=== PATIENT | male | born 1965 | race Caucasian/White ===

== ENCOUNTER 2019-09-30 17:21 | Observation (INO) ==
--- NOTE | 2019-09-30 17:39 | ED EKG INTERP ---
This chart was entered by Ayaka Ny Scribe, acting as scribe for Alden Marin MD. EKG Interpretation - EKG Time of EKG reading by physician:: 17:35 EKG Read and Signed by:: Alden Marin EKG Interpretation (*Must complete 3 of following elements*): Normal Rate: 68 Rhythm: NSR [place]: normal QRS: normal AL Interval: normal ST Wave: normal Prior EKG Comparison: no prior EKG Attestation - Physician/ BRUCE Attestation Patient care was provided by Advanced Practice Provider:: No The physician spent face to face time with patient:: Yes Advanced Practice Provider documentation review:: Supervising physician onsite and consulted in the evaluation and care of this patient. The physician did have a face to face encounter with the patient. This chart was documented by the indicated scribe, (Ayaka Ny Scribe) and accurately reflects the services I performed and decisions made by Tania cervantes Kent A., MD, as attested by the provider's signature.
[2019-09-30 18:12] LABS: BASO# 0.05 X1000 (0.0-0.2); BASO% 0.6 % (0.0-0.8); EOS% 1.2 % (0.0-10.0); HEMATOCRIT 44.6 % (42.0-52.0); HEMOGLOBIN 15.1 g/dL (14.0-18.0); LYMPH# 2.47 X1000 (1.2-3.4); LYMPH% 30.3 % (20.5-51.1); MCH 31.5 PG (27-31); MCHC 33.9 g/dL (33-37); MCV 93.1 FL (81-99); MONO# 0.77 X1000 (0.11-0.59); MONO% 9.5 % (1.7-9.3); MPV 9.9 FL (7.4-10.4); NEUT# 4.75 X1000 (1.4-6.5); NEUT% 58.4 % (42.2-75.2); PLT 263 X1000 (130-400); RBC 4.79 XMIL (4.7-6.1); RDW 13.2 % (11.5-14.5); WBC 8.14 X1000 (4.8-10.8)
--- NOTE | 2019-09-30 18:29 | EKG Report ---
Test Performed on : 09/30/2019 5:29:36 PM Test Reason : cp Blood Pressure : / mmHG Vent. Rate : 068 BPM Atrial Rate : 068 BPM P-R Int : 158 ms QRS Dur : 080 ms QT Int : 394 ms P-R-T Axes : 037 033 053 degrees QTc Int : 418 ms Normal sinus rhythm. Normal ECG When compared with ECG of 04-SEP-2017 21:45, No significant change was found Unconfirmed Result
[2019-09-30 18:42] LABS: AGAP 14; ALB/GLOB RATIO 1.8; ALBUMIN 4.1 g/dL (3.5-5.0); ALKALINE PHOSPHATASE 87 U/L (32-122); BUN 11 mg/dL (8-22); CHLORIDE 102 mmol/L (98-107); CK PROFILE 139 U/L (24-204); COSMO 284; CREATININE 1.1 mg/dL (0.7-1.2); ESTIMATED GFR > 60; GLUCOSE 163 mg/dL (70-104); GOT 16 U/L (10-34); GPT 18 U/L (10-44); POTASSIUM 4.3 mmol/L (3.5-5.1); SODIUM 141 mmol/L (136-145); TCO2 25 mmol/L (25-35); TOTAL BILIRUBIN 0.59 mg/dL (0.20-1.00); TOTAL PROTEIN 6.4 g/dL (6.3-8.3)
--- NOTE | 2019-09-30 18:58 | Diag Imaging Result Doc PS360 ---
EXAM: CHEST-2 VIEWS INDICATION: cp TECHNIQUE: 2 views COMPARISON: 09/04/2017 FINDINGS: The lungs are grossly clear. There is no discrete pleural fluid collection or pneumothorax. The cardiomediastinal silhouette and central vasculature are grossly unremarkable. IMPRESSION: No evidence of acute pathology by plain radiograph. Electronically signed by Arian Kelley 09/30/2019 6:55 PM
[2019-09-30 19:20] LABS: INR 0.86; PROTIME 11.8 Seconds (11.0-16.0)
[2019-09-30] MEDS ORDERED: NITROGLYCERIN TOP ONE (19:52)
--- NOTE | 2019-09-30 19:55 | PROVIDER DOCUMENTATION ---
HPI-General Adult - General Chief Complaint: Chest Pain Stated Complaint: CP/SOB HEART PT Time Seen by Provider: 09/30/19 17:39 Source: patient, family Allergies/Adverse Reactions: Patient Allergies Allergy/AdvReac Type Severity Reaction Status Date / Time No Known Allergies Allergy Verified 09/30/19 23:44 Home Medications: Home Medication List Medication Instructions Recorded Confirmed Last Taken Type ATORVAstatin [Lipitor] 40 mg PO QHS 09/04/17 10/01/19 09/04/17 20:30 History Aspirin 81 mg PO QAM 09/04/17 09/30/19 09/04/17 07:00 History Canagliflozin/Metformin HCl 2 tab PO QAM 09/04/17 09/30/19 09/04/17 07:00 History [Invokamet 150-1,000 mg Tablet] Cetirizine HCl [Zyrtec] 10 mg PO QAM 09/04/17 09/30/19 09/04/17 07:00 History Clopidogrel Bisulfate [Plavix] 75 mg PO QAM 09/04/17 10/01/19 09/04/17 07:00 History Losartan Potassium 50 mg PO QAM 09/04/17 09/30/19 09/04/17 07:00 History Metoprolol Succinate E.r. [Toprol 50 mg PO QAM 09/04/17 09/30/19 09/04/17 07:00 History Xl] Ranolazine E.r. [Ranexa] 500 mg PO BID 09/04/17 09/30/19 09/04/17 20:30 History Pantoprazole Sodium 40 mg PO DAILY 09/30/19 09/30/19 Unknown History - History of Present Illness -Gen Adult Nature of Presenting Problems: 53yo male presents with CC of severe central chest pressure/heaviness that start ed yesterday and has been intermitently present over the last 24 hours. Pt reports that it feels like his previous AL when he had a stent place in 2012. The patient reports associated symptoms of shortness of breath, nausea, and muscles aches. The patient denies fevers, bleeding, or numbness. Review of Systems - Adult - REVIEW OF SYSTEMS - ADULT Constitutional: reports: no symptoms reported. denies: fever Eyes: reports: no symptoms reported. denies: eye pain Ears, Nose, Mouth & Throat: reports: no symptoms reported. denies: throat pain Cardiovascular: reports: chest pain Respiratory: reports: shortness of breath Gastrointestinal: reports: nausea. denies: abdominal pain, vomiting Genitourinary: reports: no symptoms reported. denies: flank pain Musculoskeletal: reports: no symptoms reported Integumentary: reports: no symptoms reported Neurological: reports: no symptoms reported. denies: headache/migraines, numbness Psychiatric: reports: no symptoms reported. denies: alcohol/drug dependence Endocrine: reports: no symptoms reported Hematologic/Lymphatic: reports: no symptoms reported, other (no bleeding) Allergic/Immunologic: reports: no symptoms reported Past History - Adult - PAST MEDICAL HISTORY-ADULT Review of Records: reports: Old Records Reviewed Major Childhood Illnesses: reports: denies history Cardiovascular: reports: cardiac disease, CAD Respiratory: reports: denies history Gastrointestinal: reports: denies history Obstetrical/Gynecological: reports: denies history Genitourinary: reports: denies history Musculoskeletal: reports: denies history Neurological: reports: denies history Endocrine/Immune: reports: denies history Other Conditions: reports: denies history - PRIOR SURGERIES/PROCEDURES Surgical/Procedure History: reports: reviewed, not pertinent - IMMUNIZATION STATUS Childhood Immunizations: See Nurse Assessment Flu Vaccine: See Nurse Assessment - FAMILY HISTORY Family History: reviewed, not pertinent - SOCIAL HISTORY Smoking: denies Substance Use: none/never Alcohol Use Frequency: occasionally Physical Exam-General - PHYSICAL EXAM-ADULT Initial Vital Signs Reviewed: Yes - CONSTITUTIONAL General Appearance: alert, mild distress, obese - EYES Eyes: negative: conjuctival exudate, photophobia, sclera injected, scleral icterus - HEAD, EARS, NOSE, MOUTH & THROAT HENMT: normocephalic/atraumatic, moist mucous membranes, pharynx normal. negative: hearing deficit - NECK Neck: non-tender, supple. negative: lymphadenopathy - RESPIRATORY Respiratory: normal breath sounds, no respiratory distress - CARDIOVASCULAR Cardiovascular: regular rate, rhythm. negative: no edema (1+ bilateral LE edema) - GASTROINTESTINAL (ABDOMEN) Abdominal Exam: non tender, soft - MUSCULOSKELETAL Extremity: non-tender, swelling (1+ bilateral LE edema). negative: deformity - SKIN Integumentary: normal color, warm/dry. negative: cyanosis, diaphoresis, jaundice, pallor - NEUROLOGIC Neurologic: grossly normal - PSYCHIATRIC Psych/Mental Status: normal mood/affect, normal thought content, normal thought process Progress - PLAN OF CARE/RESULTS Progress/Plan/Lab Results: Vital Signs - 8 hr 09/30/19 17:24 Temperature 97.7 F Pulse Rate 71 Respiratory Rate 20 Blood Pressure 156/86 O2 Sat by Pulse Oximetry 99 Laboratory Results - last 24 hr 09/30/19 09/30/19 09/30/19 17:52 17:52 17:52 WBC RBC Hgb Hct MCV MCH MCHC RDW Std Deviation Plt Count MPV Immature Gran % (Auto) Neut % (Auto) Lymph % (Auto) Saunders % (Auto) Eos % (Auto) Baso % (Auto) Immature Gran # (Auto) Neut # (Auto) Lymph # (Auto) Saunders # (Auto) Eos # (Auto) Baso # (Auto) PT INR PTT (Actin FS) Sodium 141 Potassium 4.3 Chloride 102 Carbon Dioxide 25 Anion Gap 14 BUN 11 Creatinine 1.1 Estimated GFR/1.73 m2 > 60 BUN/Creatinine Ratio 10 Glucose 163 H Calculated Osmolality 284 Calcium 9.0 Total Bilirubin 0.59 AST 16 ALT 18 Alkaline Phosphatase 87 Creatine Kinase 139 Troponin T High Sens 10 Xtu-A-Vvcjcjlvnxh Pept 19 Total Protein 6.4 Albumin 4.1 Globulin 2.3 Albumin/Globulin Ratio 1.8 09/30/19 09/30/19 09/30/19 17:52 17:52 17:52 WBC 8.14 RBC 4.79 Hgb 15.1 Hct 44.6 MCV 93.1 MCH 31.5 H MCHC 33.9 RDW Std Deviation 13.2 Plt Count 263 MPV 9.9 Immature Gran % (Auto) 0.0 Neut % (Auto) 58.4 Lymph % (Auto) 30.3 Saunders % (Auto) 9.5 H Eos % (Auto) 1.2 Baso % (Auto) 0.6 Immature Gran # (Auto) 0.00 Neut # (Auto) 4.75 Lymph # (Auto) 2.47 Saunders # (Auto) 0.77 H Eos # (Auto) 0.10 Baso # (Auto) 0.05 PT 11.8 INR 0.86 PTT (Actin FS) 29.6 Sodium Potassium Chloride Carbon Dioxide Anion Gap BUN Creatinine Estimated GFR/1.73 m2 BUN/Creatinine Ratio Glucose Calculated Osmolality Calcium Total Bilirubin AST ALT Alkaline Phosphatase Creatine Kinase Troponin T High Sens Bke-O-Qkurgcnzxdz Pept Total Protein Albumin Globulin Albumin/Globulin Ratio Orders Category Date Time Status Cardiac Monitoring DIRECTED Care 09/30/19 17:27 Active Oxygen Therapy- ED Nursing DIRECTED Care 09/30/19 17:27 Active Saline Loc NOW Care 09/30/19 17:27 Active CHEST-2 VIEWS [RAD] Stat Exams 09/30/19 17:27 Completed CBC WITH ELECTRONIC DIFF [HEME] Stat Lab 09/30/19 17:52 Completed CK PROFILE [SP CHEM] Stat Lab 09/30/19 17:52 Completed COMPREHENSIVE METABOLIC PANEL [CHEM] Stat Lab 09/30/19 17:52 Completed PRO B-NATRIURETIC PEPTIDE Stat Lab 09/30/19 17:52 Completed PROTIME WITH INR [COAG] Stat Lab 09/30/19 17:52 Completed PTT [COAG] Stat Lab 09/30/19 17:52 Completed TROPONIN T HIGH SENSITIVITY Stat Lab 09/30/19 17:52 Completed TROPONIN T HIGH SENSITIVITY Stat Lab 09/30/19 19:52 Uncollected CP/SOB/Palp >45 yrs of Age Stat Oth 09/30/19 17:27 Ordered EKG [EKG] Stat Ther 09/30/19 17:27 Draft Result Diagrams: 09/30/19 17:52 09/30/19 17:52 - REASSESSMENT Reassessment #1 Status: other (Given patient description of his chest pain as well as higher risk with hx of CAD with stent and DM and HTN. Will admit for further evaluation. Discussd with the hospitalist team who has accepted the patient.) Departure - Departure Date of Disposition Decision: 10/01/19 Time of Disposition Decision: 00:26 DIAGNOSIS: Chest pain Qualifiers: Chest pain type: unspecified Qualified Code(s): R07.9 - Chest pain, unspecified Disposition: ADMITTED INPATIENT 09 Certified Medical Emergency: Emergent Condition: Fair - Critical Care Note This patient required my direct & personal management of CC.: No Attestation - Physician/ BRUCE Attestation Patient care was provided by Advanced Practice Provider:: No The physician spent face to face time with patient:: Yes Advanced Practice Provider documentation review:: Supervising physician onsite and consulted in the evaluation and care of this patient. The physician did have a face to face encounter with the patient. - HEART Score HEART Score: History: Highly Suspicious HEART Score: ECG: Normal HEART Score: Age: 45-65 Years HEART Score: Risk Factors for Atherosclerotic Disease: > or = 3 Risk Factors or History of Atherosclerotic Disease HEART Score: Troponin: < or = Normal Limit Total HEART Score:: 5
[2019-10-01] MEDS ORDERED: ZOFRAN IV PRN (00:26)
[2019-10-01] MEDS ORDERED: TYLENOL PO PRN (00:26)
--- NOTE | 2019-10-01 00:46 | HISTORY AND PHYSICAL ---
PRIMARY CARE PROVIDER: Dr. Champagne. CHIEF COMPLAINT: Chest pain x2 days. HISTORY OF PRESENTING ISSUE: A 53-year-old male with a history of coronary disease, diabetes mellitus type 2, hypertension, hyperlipidemia, who presented to emergency department with 2 days history of having chest pain. He described it as pressure-like and he was short of breath. He was seen in the ED and, due to his presenting symptoms, it was thought that he will require admission for further management. At the time of my examination, patient denied any headache, fever, chills, hemoptysis, melena, weight changes, but complained of chest pain and shortness of breath. PAST MEDICAL HISTORY: Includes coronary artery disease, diabetes mellitus type 2, hypertension, hyperlipidemia. PAST SURGICAL HISTORY: Coronary stent, hernia repair, left ankle surgery. ALLERGIES: No known drug allergies. CURRENT MEDICATIONS: Include aspirin 81 mg p.o. q.a.m., atorvastatin 40 mg p.o. daily, Invokamet 150-1000 mg daily, Plavix 75 mg p.o. daily, losartan 50 mg p.o. q.a.m., metoprolol 50 mg p.o. q.a.m., pantoprazole 40 mg p.o. daily, Ranexa 500 mg p.o. b.i.d. SOCIAL HISTORY: He denies any history of smoking. Admits to social alcohol use. Denies any illicit drug use. FAMILY HISTORY: No history of coronary artery disease. REVIEW OF SYSTEMS: Fourteen-point review of systems is listed as in HPI. Other systems negative. PHYSICAL EXAMINATION: GENERAL: Cooperative, friendly male, he is resting comfortably now. VITAL SIGNS: Temperature 97.7 degrees, pulse 71, respirations 20, blood pressure 156/86. HEENT: Atraumatic, normocephalic. Extraocular movements intact. PERRLA. NECK: Supple. CHEST: Clear to auscultation. CARDIOVASCULAR: Regular rate and rhythm. S1, S2. ABDOMEN: Soft. Positive bowel sounds. EXTREMITIES: No edema. NEUROLOGIC: He is awake, alert, oriented x3. GENITOURINARY: No bladder distention. SKIN: Warm. LABORATORIES AND STUDIES: WBCs 8.14, hemoglobin 15.1, hematocrit 44.6, platelets 263,000. Sodium 141, potassium 4.3, chloride 102, CO2 is 25, BUN is 11, creatinine is 1.1. Glucose 163. Troponin is 10. Chest x-ray, no evidence of any acute pathology. ASSESSMENT: A 53-year-old male with a history of coronary artery disease, diabetes mellitus type 2, hypertension, hyperlipidemia, who presented to emergency department with 2 days history of having chest pain. We will place the patient for observation for further evaluation and management. ASSESSMENT: 1. Chest pain. 2. Coronary artery disease. 3. Diabetes mellitus type 2. 4. Hypertension. PLAN: 1. We will admit patient to medical floor with telemetry. We will continue with cardiac workup. Check EKG, serial cardiac enzymes. Have patient continue on aspirin. We will use a nitroglycerin p.r.n. chest pain. 2. Consult Cardiology. 3. Monitor blood glucose. Put patient on sliding scale insulin regimen. 4. We will monitor blood pressure. Resume antihypertensive agent. 5. Put patient on DVT prophylaxis with Lovenox. 6. We will continue to follow and reassess, make further recommendation based on patient's clinical course. cc: Joseph Horton MD
[2019-10-01] MEDS: LOVENOX SUBQ SCH (01:14)
[2019-10-01] MEDS: HUMULIN R SUBQ SCH ×4 (07:00→20:26)
[2019-10-01] MEDS: TOPROL XL PO SCH (08:30)
[2019-10-01] MEDS: RANEXA PO SCH ×2 (08:30→20:25)
[2019-10-01] MEDS: COZAAR PO SCH (08:31)
[2019-10-01] MEDS: PRILOSEC PO SCH (08:31)
[2019-10-01] MEDS ORDERED: ASPIRIN PO SCH (09:00)
[2019-10-01] MEDS ORDERED: PROTONIX PO SCH (09:00)
--- NOTE | 2019-10-01 09:31 | CARDIOLOGY CONSULTATION ---
DATE: 10/01/2019 CHIEF COMPLAINT: Episodes of chest pain over the last 3 days. HISTORY OF PRESENT ILLNESS: Mr. Neff is a 53-year-old male with a history of coronary disease, diabetes, hypertension, hyperlipidemia. He presented with complaints of chest pain that felt like a heaviness in sensation, all occurring at rest. They generally would occur in the car, and happened 3 to 4 times over the last 3 days. He had one bout of nausea associated with some of these episodes. Again, no exertional component. He has a history of an RCA stent, and reports that this is somewhat similar to what he had in the past. PAST MEDICAL HISTORY: Significant for: 1. Hypertension. 2. Hyperlipidemia. 3. Diabetes. 4. Coronary disease, with reported per him, coronary stenting in his RCA. I do not have records of this. SOCIAL HISTORY: He does not smoke. Rare alcohol use. He works as a [employer] dispatcher. FAMILY HISTORY: No early history of coronary disease. REVIEW OF SYSTEMS: A 10-system review of systems is negative, except for those mentioned in the HPI. PHYSICAL EXAMINATION: Vital Signs: He is afebrile, heart rate is 72, his most recent blood pressure is 133/74. General: He is in no acute distress. HEENT: Oropharynx is moist. Normal dentition. Eye examination shows pink conjunctivae, white sclerae. Neck: No obvious thyromegaly or thyroid tenderness. Cardiovascular: He sounds to be in a regular rate and rhythm. I do not hear any obvious murmurs. He has no S3. He has no lower extremity edema. No carotid bruits. His JVP is less than 8. Chest: Clear bilaterally. No increased work of breathing. Abdomen: Soft, nontender, nondistended. He has no obvious organomegaly. Skin: Warm and dry throughout. He has no obvious rashes. Neurological: He is moving all extremities well. He has no lateralizing deficits. PERTINENT DATA: His EKG shows sinus rhythm, rate of 68 beats per minute. No ischemic changes. No infarct. He had a chest x-ray performed that shows no evidence of any acute findings. The EKG tracing was reviewed by me. Nuclear scan previously done on him back in 2018 shows normal ejection fraction with normal perfusion. His lab data shows a white count of 8.1, his hematocrit is 44, his platelet count is 263,000. His INR is normal. His sodium is 141, potassium 4.3, his BUN is 11, creatinine is 1.1. High-sensitivity troponins were checked 3 times. His initial was 10, subsequent were all less than 6. His LDL in 08/2018 was 105. ASSESSMENT: Mr. Neff is a 53-year-old gentleman with a reported history of coronary disease, who presented with nonexertional chest pain. PLAN: We will proceed with myocardial perfusion imaging. I have any escalated his statin to 80 mg at bedtime. I have discontinued checking his troponins at this point given that his trend has been normal. Further recommendations to follow the results of the testing. cc: Sam Latham MD
[2019-10-01 09:35] LABS: CHOLESTEROL 202 mg/dL (0-200); HDL 53 mg/dL (35-55); LDL 123 mg/dL; TRIGLYCERIDES 128 mg/dL (39-160); VLDL 26 mg/dL
[2019-10-01] MEDS ORDERED: LEXISCAN ONE (12:32)
--- NOTE | 2019-10-01 16:08 | Diag Imaging Result Document ---
PROCEDURE NAME: MYOCARDIAL PERF SCAN, STR/REST - 10/01/2019 INDICATION: This is a 53-year-old male with chest pain. The patient presented to the ER. A stress test requested, walking Lexiscan protocol was used. Resting images obtained with 14.3 mCi of technetium 99 sestamibi. The stress images with 41.9 mCi. Walking Lexiscan protocol with 0.4 mg of Lexiscan was used. SUMMARY OF THE ELECTROCARDIOGRAPHIC PORTION OF THE STUDY: Resting ECG showed sinus rhythm, rate 79 beats per minute. Resting blood pressure 123/61. Resting ECG looks quite normal. During the protocol, the heart rate increased to a maximum of 120 beats per minute. Blood pressure went up to 136/62. Peak infusion ECG shows sinus tachycardia without any ischemic changes. The patient reported no symptoms. There were no ischemic abnormalities during the recovery phase. In summary, the ECG response to walking Lexiscan protocol is normal. SUMMARY OF THE MYOCARDIAL PERFUSION PORTION OF THE STUDY: Poststress tomographic views of the left ventricle showed normal homogeneous distribution of radiotracer throughout the entire left ventricular myocardium. There is no evidence of any postexercise defect. The rest images showed normal perfusion. Polar plots revealed the same. There is no evidence of any inducible ischemia nor myocardial scar. Gated SPECT on the poststress images showed ejection fraction of 90%, normal ventricular volumes, no wall motion abnormality. Lung/heart ratio is normal. TID is normal. SUMMARY: This study shows: 1. Normal electrocardiographic response to walking Lexiscan protocol. 2. Normal poststress myocardial perfusion scan. There is no scintigraphic evidence of pharmacologic-induced myocardial ischemia. 3. Normal left ventricular systolic function, ejection fraction 90%, normal ventricular volumes, no wall motion abnormalities. This study represents low risk for ischemic events. cc: MD Sam Hall MD
[2019-10-01] MEDS ORDERED: LIPITOR PO SCH ×2 (21:00)
[2019-10-02] MEDS: LOVENOX SUBQ SCH (01:12)
[2019-10-02] MEDS: PRILOSEC PO SCH (06:25)
[2019-10-02] MEDS: HUMULIN R SUBQ SCH ×2 (06:26→14:34)
[2019-10-02] MEDS ORDERED: PLAVIX PO SCH (09:00)
[2019-10-02] MEDS ORDERED: ASPIRIN PO SCH (09:00)
[2019-10-02] MEDS ORDERED: RANEXA PO SCH (09:00)
[2019-10-02] MEDS: TOPROL XL PO SCH (09:13)
[2019-10-02] MEDS: COZAAR PO SCH (09:18)
[2019-10-02] MEDS ORDERED: INVOKANA PO ONE (13:03)
--- NOTE | 2019-10-02 15:26 | CARDIOLOGY PROGRESS NOTE ---
DATE: 10/02/2019 SUBJECTIVE: Mr. Neff had an episode of chest discomfort yesterday evening while sitting up. He noticed it was worse with sitting in an upright posture. PHYSICAL EXAMINATION: Vital Signs: Afebrile. Heart rate 61, blood pressure 118/68. General: He is in no acute distress. Cardiovascular: He is in a regular rate and rhythm. He has no obvious murmurs. He has no S3. No lower extremity edema. Chest: Sounds clear bilaterally. He has no increased work of breathing. Abdomen: Soft, nontender. PERTINENT DATA: Total cholesterol yesterday was 202, LDL 123. Nuclear perfusion imaging demonstrated normal perfusion, ejection fraction of 90%. ASSESSMENT: Mr. Neff is a 53-year-old gentleman with a previous right coronary artery stent. PLAN: Normal perfusion was identified on his nuclear scan. He has had unremarkable EKGs and negative cardiac enzymes times multiple sets. I have escalated his Ranexa to 1000 mg b.i.d. and his atorvastatin to 80 mg at bedtime. From my standpoint, he can be discharged home when okay with the primary team. cc: Sam Latham MD
[2019-10-02 16:07] VITALS: BP 114/68
--- NOTE | 2019-10-02 19:50 | ECHO REPORT ---
ORDER DATE: 10/01/2019 INDICATION: Chest pain . M-MODE MEASUREMENTS: Left ventricle end diastole: 3.6. Left ventricle end systole: 2.4. Posterior wall: 0.9. Interventricular septum: 1.0. Left atrium: 3.6. Aortic diameter: 3.1. SUMMARY OF 2-DIMENSIONAL IMAGIN. Left ventricular function is excellent. Ejection fraction is 70% to 75%. Optison was added. There is no wall motion abnormality noted. 2. The aortic valve is normal. Color flow mapping unremarkable. 3. The mitral valve is normal. Color flow mapping unremarkable. 4. Pulse wave Doppler of mitral inflow is normal. 5. Tissue Doppler of septal and lateral mitral annulus averages 7 cm. There is no diastolic dysfunction. 6. The aortic valve has 3 cusps. They open normally. Color flow mapping unremarkable. 7. The pulmonic valve is unremarkable. 8. The tricuspid valve is normal. Color flow mapping unremarkable. There is no pulmonary hypertension. 9. The right-sided chambers are normal. There is no enlargement of the left atrium. 10.There is no pericardial effusion, no mass, and no thrombus. In summary, this echocardiographic study that was done with the addition of Optison is basically normal. Clinical correlation recommended. cc: MD Sam Hall MD
--- NOTE | 2019-10-03 20:33 | DISCHARGE SUMMARY ---
ADMISSION DATE: 09/30/2019 DISCHARGE DATE: 10/02/2019 CHIEF COMPLAINT: 1. Atypical chest pain. 2. Coronary artery disease. 3. Diabetes. HISTORY OF PRESENT ILLNESS: This is a 53-year-old male with history of CAD, diabetes, who came in with some pressure-like pain. He was placed in observation. Cardiac enzymes were negative. He underwent myocardial perfusion, which I think also was negative. He had an echo, which has still not been read, but in any case, Dr. Latham evaluated patient. He adjusted his medications and he was felt stable for discharge. We will refer him to GI. He is going to plan to see Dr. Collins, and we will continue to follow his statin. Right upper quadrant ultrasound will be done as an outpt. Aspirin 81 mg, canagliflozin, metformin 1 g 2 daily, losartan 50 daily, Plavix 75 daily, Toprol-XL 50 daily, Zyrtec 10 daily, Lipitor 80, Protonix 40 b.i.d., Ranexa 1 g b.i.d.. DISCHARGE CONDITION: Stable. cc: Fabio Hernandez MD MTDD
== END 2019-10-02 19:11 | disposition home or self-care (01) ==
LOC: ED 17:21 → SUATTDRO 10-01 00:54 → EDIPHOLD 10-01 00:54 → INTOOBSV 10-01 00:54 → EDIPHOLD 10-01 09:21 → 3N 10-01 16:25
PROVIDERS: ATTEND Internal Medicine